=== PATIENT | female | born 1985 | race Caucasian/White ===

== ENCOUNTER 2017-03-18 01:07 | Emergency (ER) | payer SELFPAY ==
[~2017-03-18 01:07] MED LIST: ACYCLOVIR400 M1 PO; ANAPROX DS550 MG PO; AUGMENTIN 875-1 EAC1 PO; AUGMENTIN 875-1 EAC2 PO; BACTRIM DS TABL1 TAB PO; BACTRIM DS1 TAB PO; CLEOCIN HCL300 MG PO; COMPAZINE10 MG PO; CYCLOBENZAPRINE5 M1 PO; DICLOFENAC POTA50 M1 PO; DOXYCYCLINE HY100 M3 PO; FLAGYL500 M1 PO; FLAGYL500 MG PO; H PO; HYDROCODON-ACE1 EA16 PO; IBUPROFEN IB200 MG PO; IBUPROFEN200 MG PO; IUD; KEFLEX500 M1 PO; MEDROL4 M2 PO; MOTRIN400 MG PO; MOTRIN600 MG PO; NO HOME MEDICATION XX; NO HOME MEDS; NOND; NORCO 10/325 TA1 TAB PO; NORCO 5-325 TA1 EACH PO; NORCO 5/325 TAB1 TAB PO; NORCO 5/3251 TAB PO; NORCO 7.5/325 T1 TAB PO; NUPRIN200 M PO; PERCOCET 5-3251 EACH PO; PERCOCET 5/3251 TAB PO; PREDNISONE20 M1 PO; REGLAN10 M2 PO; SULFAMYLON SOL250 M1 TOP; TRAMADOL HCL50 M2 PO; TRAMADOL HCL50 MG PO; TYLENOL EXTRA500 M1 PO; TYLENOL325 MG PO; VIBRAMYCIN100 MG PO; ZOFRAN ODT4 MG PO; ZOFRAN ODT4 MG/UDTAB PO; ZOFRAN4 MG PO
== END 2017-03-18 03:50 ==
LOC: EDMED 01:07
DX: S20.211A Contusion of right front wall of thorax, initial encounter (principal); S80.02XA Contusion of left knee, initial encounter; S80.01XA Contusion of right knee, initial encounter; S20.221A Contusion of right back wall of thorax, initial encounter; Y04.0XXA Assault by unarmed brawl or fight, initial encounter; Y07.03 Male partner, perpetrator of maltreatment and neglect